=== PATIENT | female | born 1940 | race Caucasian/White ===

== ENCOUNTER 2025-07-16 21:38 | Emergency (ER) | payer MEDICARE, OTHER ==
[2025-07-16] MEDS ORDERED: Sodium Chloride 0.9% 10 ML Syringe FLUSH PRN (21:47)
[2025-07-16 21:55] LABS: BASOPHILS ABSOLUTE AUTO 0.01 10^3/uL (0.00-0.10); BASOPHILS PERCENT AUTO 0.2 % (0.0-1.0); EOSINOPHILS ABSOLUTE AUTO 0.17 10^3/uL (0.10-0.30); EOSINOPHILS PERCENT AUTO 3.0 % (1.0-3.0); IMMATURE GRAN ABSOLUTE AUTO 0.00 10^3/uL (0.00-0.04); IMMATURE GRAN PERCENT AUTO 0.0 % (0.0-0.4); LYMPHOCYTES ABSOLUTE AUTO 1.64 10^3/uL (1.00-4.00); LYMPHOCYTES PERCENT AUTO 29.3 % (20.0-40.0); MEAN PLATELET VOLUME 10.3 fL (7.4-10.4); MONOCYTES ABSOLUTE AUTO 0.47 10^3/uL (0.10-0.80); MONOCYTES PERCENT AUTO 8.4 % (2.0-8.0); NEUTROPHILS ABSOLUTE AUTO 3.30 10^3/uL (2.50-7.00); NEUTROPHILS PERCENT AUTO 59.1 % (50.0-70.0); PLATELET COUNT,PLT 187 10^3/uL (150-400); RED BLOOD CELL COUNT 3.88 10^6/uL (3.80-5.50); RED CELL DISTRIBUTION WIDTH 13.2 % (11.5-14.5); WHITE BLOOD CELL COUNT,WBC 5.59 10^3/uL (5.00-10.00)
[2025-07-16 22:13] LABS: ALANINE AMINOTRANSFERASE,ALT 16 U/L (14-63); ASPARTATE AMNIOTRANSFERASE,AST 18 U/L (15-37); B-TYPE NATRIURETIC PEPTIDE,BNP 50 pg/mL (0-100); BILIRUBIN TOTAL 0.4 mg/dL (0.2-1.0); BLOOD UREA NITROGEN,BUN 21 mg/dL (7-18); CARBON DIOXIDE,CO2 29.2 mmol/L (21.0-32.0); CHLORIDE,CL 105 mmol/L (98-107); CREATININE 1.03 mg/dL (0.51-1.17); GLUCOSE RANDOM 207 mg/dL (70-140); POTASSIUM,K 3.6 mmol/L (3.5-5.1); PROTEIN TOTAL,TP 6.4 g/dL (6.4-8.2); SODIUM,NA 142 mmol/L (136-145)
[2025-07-16 22:16] LABS: ESTIMATED GFR 53 mL/min (>=60)
[2025-07-16 23:08] LABS: APPEARANCE,URINE CLOUDY (CLEAR); GLUCOSE,URINE NEGATIVE (NEGATIVE); OCCULT BLOOD,URINE TRACE-LYSED (NEGATIVE)
[2025-07-16 23:16] LABS: EPITHELIAL CELLS,URINE NOT SEEN /LPF
== END 2025-07-17 00:42 | disposition home or self-care (01) ==
LOC: KA.ED 21:38
DX: R55 Syncope and collapse (principal); N39.0 Urinary tract infection, site not specified; E78.00 Pure hypercholesterolemia, unspecified; Z88.8 Allergy status to other drugs, medicaments and biological substances; Z79.899 Other long term (current) drug therapy; Z90.49 Acquired absence of other specified parts of digestive tract; Z90.710 Acquired absence of both cervix and uterus
CPT/HCPCS: 70450; 71045; 80053; 81001; 83605; 83880; 84484; 85025; 87086; 87088; 87186; 93010; 96361; 96374; 99284; 99285-25; A9270-GY; J0696; J7030